=== PATIENT | female | born 1980 | race Caucasian/White ===

== ENCOUNTER 2016-04-11 08:32 | Emergency (ER) | payer OTHER ==
[~2016-04-11] VITALS: Ht 160 cm; Wt 70.9 kg
[2016-04-11 09:20] LABS: HEMATOCRIT 34.7 % (36.0-46.0); MCH 31.9 PG (29.0-34.0); MCHC 35.4 G/DL (30.0-36.0); MCV 90.1 FL (83-99); MEAN PLAT.VOLUME 10.8 uM^3 (9.5-12.4); PLATELET COUNT 228 K/uL (156-360); RBC DIS.WIDTH-CV 11.7 % (11.8-14.6); RBC DIS.WIDTH-SD 37.5 % (39-53); RED BLOOD COUNT 3.85 M/uL (3.80-5.20); WHITE BLOOD COUNT 5.5 K/uL (4.1-10.2)
[2016-04-11 10:04] LABS: ADD MIUA? YES; BILIRUBIN NEGATIVE; BLOOD LARGE; COLOR DK YELLOW ((YELLOW)); GLUCOSE (STRIP) NEGATIVE; KETONES TRACE; LEUKOCYTES TRACE; NITRITE NEGATIVE; PROTEIN (STRIP) 30; SPECIFIC GRAVITY 1.031 (1.000-1.030)
[2016-04-11 10:26] LABS: BACTERIA 1+; CASTS NONE SEEN /LPF; CRYSTALS PRESENT; EPITHELIAL CELLS 1+; MUCUS NONE SEEN; RED BLOOD CELLS 0-5 /HPF (0-5); UCUL ADDED? NO; WHITE BLOOD CELLS 0-5 /HPF (0-5)
[2016-04-11 10:28] LABS: AMORPHOUS PHOSPHATE CRYSTALS 2+
[2016-04-11 14:23] VITALS: BP 109/58
== END 2016-04-11 14:24 | disposition home or self-care (01) ==
LOC: EDBD 08:32 → EME 08:32
DX: O03.9 Complete or unspecified spontaneous abortion without complication (principal); F17.200 Nicotine dependence, unspecified, uncomplicated; Z3A.08 8 weeks gestation of pregnancy
CPT/HCPCS: 76801; 81003; 84702; 85027; 86900; 86901; 99281; 99284

== ENCOUNTER 2016-04-30 13:13 | Emergency (ER) | payer OTHER ==
[~2016-04-30] VITALS: Ht 160 cm; Wt 69.0 kg
[2016-04-30 15:06] LABS: HEMATOCRIT 34.3 % (36.0-46.0); MCH 31.8 PG (29.0-34.0); MCHC 34.7 G/DL (30.0-36.0); MCV 91.7 FL (83-99); MEAN PLAT.VOLUME 11.4 uM^3 (9.5-12.4); PLATELET COUNT 234 K/uL (156-360); RBC DIS.WIDTH-CV 11.8 % (11.8-14.6); RBC DIS.WIDTH-SD 38.3 % (39-53); RED BLOOD COUNT 3.74 M/uL (3.80-5.20); WHITE BLOOD COUNT 5.6 K/uL (4.1-10.2)
[2016-04-30 15:18] LABS: CHLORIDE 108 mEq/L (99-109); POTASSIUM 4.1 mEq/L (3.7-5.4); SODIUM 138 mEq/L (136-147)
[2016-04-30 15:20] LABS: GLUCOSE 104 mg/dL (70-99)
[2016-04-30 15:21] LABS: ANION GAP 6 MEQ/L (2-14)
[2016-04-30 15:22] LABS: TOTAL BILIRUBIN 0.1 mg/dL (0.0-1.0)
[2016-04-30 15:24] LABS: ALKALINE PHOSPHATASE 41 IU/L (3-129); GFR ESTIMATE (CALCULATED) > 59 mL/min/
[2016-04-30 15:25] LABS: UREA NITROGEN (BUN) 12 mg/dL (9-23)
[2016-04-30 15:32] LABS: QUANTITATIVE HCG 25.6 MIU/ML
[2016-04-30] MEDS ORDERED: FLEET ENEMA-AD118 ML PR (16:10)
[2016-04-30] MEDS ORDERED: COLACE100 MG PO (16:10)
[2016-04-30 16:24] VITALS: BP 113/67
== END 2016-04-30 16:25 | disposition home or self-care (01) ==
LOC: EME 13:13
DX: K59.00 Constipation, unspecified (principal); R10.9 Unspecified abdominal pain; F17.200 Nicotine dependence, unspecified, uncomplicated
CPT/HCPCS: 74000; 80053; 81003; 84702; 85027; 99281; 99284

== ENCOUNTER 2016-06-04 18:15 | Emergency (ER) | payer OTHER ==
[~2016-06-04] VITALS: Ht 160 cm; Wt 67.9 kg
[~2016-06-04 18:15] MED LIST: COLACE100 MG PO; FLEET ENEMA-AD118 ML PR
[2016-06-04] MEDS ORDERED: NEURONTIN300 MG PO (19:10)
[2016-06-04] MEDS ORDERED: SEROQUEL300 MG PO (19:11)
[2016-06-04] MEDS ORDERED: ZUBSOLV 11.4-21 EACH SL (19:12)
[2016-06-04] MEDS ORDERED: AUGMENTIN875 MG PO (19:12)
[2016-06-04] MEDS ORDERED: LAMICTAL25 MG PO (19:12)
[2016-06-04] MEDS ORDERED: CLARITIN10 M3 PO (19:13)
[2016-06-04] MEDS ORDERED: XARELTO15 MG PO (21:32)
[2016-06-04 21:39] VITALS: BP 111/71
== END 2016-06-04 21:40 | disposition home or self-care (01) ==
LOC: EME 18:15
DX: I82.622 Acute embolism and thrombosis of deep veins of left upper extremity (principal); Z86.718 Personal history of other venous thrombosis and embolism; F17.200 Nicotine dependence, unspecified, uncomplicated
CPT/HCPCS: 93971; 99281; 99284

== ENCOUNTER 2016-09-23 08:17 | Emergency (ER) | payer OTHER ==
[~2016-09-23] VITALS: Ht 160 cm; Wt 59.9 kg
[~2016-09-23 08:17] MED LIST changes: +AUGMENTIN875 MG PO; +CLARITIN10 M3 PO; +LAMICTAL25 MG PO; +NEURONTIN300 MG PO; +SEROQUEL300 MG PO; +XARELTO15 MG PO; +ZUBSOLV 11.4-21 EACH SL
[2016-09-23] MEDS ORDERED: SILVADENE20 GM TP (09:59)
[2016-09-23] MEDS ORDERED: PERCOCET 5/31 TABLET PO (09:59)
[2016-09-23 10:32] VITALS: BP 120/79
== END 2016-09-23 10:35 | disposition home or self-care (01) ==
LOC: EME 08:17
DX: T22.111A Burn of first degree of right forearm, initial encounter (principal); T22.112A Burn of first degree of left forearm, initial encounter; T31.0 Burns involving less than 10% of body surface; X10.2XXA Contact with fats and cooking oils, initial encounter; Y93.G3 Activity, cooking and baking; F17.200 Nicotine dependence, unspecified, uncomplicated
CPT/HCPCS: 84702; 99281; 99284